=== PATIENT | female | born 1990 | race Caucasian/White ===

== ENCOUNTER 2019-03-02 22:46 | Emergency (ER) | payer MEDICAID ==
[~2019-03-02] VITALS: Ht 152.4 cm; Wt 68.0 kg
[2019-03-02 22:56] VITALS: BP 120/72
--- NOTE | 2019-03-02 23:10 | NUR ---
PT CAME IN C/O OF SUPRAPUBIC ABDOMINAL PAIN. PAIN LEVEL 10/10, RADIATING TO BACK. PAIN UPON URINATION, BURNING. PT STATES SHE IS 13 WEEKS . LAST MENSTRUAL CYCLE OCT 17, 2018. DENIES N/V/D. VAGINAL BLEEDING NOTED, BUT CONTROLLED. NO DIZZINESS. SAFETY MEASURES IN PLACE. WAITING FOR ERMD TO EVALUATE PT.
--- NOTE | 2019-03-02 23:28 | NUR ---
Dr. Spear examining patient.
[2019-03-02 23:31] LABS: BASOPHILS # (AUTO) 0.1 K/uL (0.00-0.22); EOSINOPHILS # (AUTO) 0.5 K/uL (0-0.4); EOSINOPHILS % (AUTO) 6.1 % (0.0-4.0); HEMATOCRIT 41.1 % (36-48); LYMPHOCYTES # (AUTO) 1.3 K/uL (2.5-16.5); LYMPHOCYTES % (AUTO) 16.5 % (20.5-51.1); MEAN CORPUSCULAR HEMOGLOBIN 30 pg (27-31); MEAN CORPUSCULAR HGB CONC 34 g/dL (33-37); MEAN CORPUSCULAR VOLUME 88.9 fL (80-94); MONOCYTES # (AUTO) 0.4 K/uL (0.8-1.0); MONOCYTES % (AUTO) 4.8 % (1.7-9.3); NEUTROPHILS # (AUTO) 5.5 K/uL (1.8-7.7); NEUTROPHILS % (AUTO) 71.6 % (42.2-75.2); PLATELET COUNT (AUTO) 242 K/uL (140-450); RED BLOOD CELL COUNT(AUTO) 4.62 MIL/uL (4.20-5.40); RED CELL DISTRIBUTION WIDTH 13.4 % (11.6-13.7); WHITE BLOOD COUNT (AUTO) 7.7 K/uL (4.8-10.8)
--- NOTE | 2019-03-02 23:34 | NUR ---
PT TAKEN TO ULTRASOUND
[2019-03-02 23:37] LABS: APPEARANCE,URINE BLOODY (CLEAR); BILIRUBIN,URINE NEGATIVE (NEGATIVE); BLOOD, URINE 3+ (NEGATIVE); COLOR,URINE YELLOW (YELLOW); LEUKOCYTE ESTERASE ,URINE 2+ (NEGATIVE); NITRITE, URINE POSITIVE (NEGATIVE); PH,URINE 8.5 (5.0-9.0); UGLUCOSE NEGATIVE (NEGATIVE)
--- NOTE | 2019-03-02 23:46 | NUR ---
PT RETURN FROM ULTRASOUND
[2019-03-02 23:51] LABS: RBC,URINE TOO NUMEROUS TO COUN /HPF (0-5); WBC,URINE TOO MANY TO COUNT /HPF (0-5)
--- NOTE | 2019-03-03 00:10 | NUR ---
PT IN BED RESTING WITH EYES OPEN. AT BEDSIDE. VSS. WILL CONTINUE TO MONITOR.
--- NOTE | 2019-03-03 01:30 | NUR ---
Aleena arredondo in ED - 03/03/19 at [address] RAHMAN WITH PELVIC EXAM. TOLERATED PROCEDURE WELL.
--- NOTE | 2019-03-03 01:35 | NUR ---
ASSISTED DR. RAHMAN WITH PELVIC EXAM. TOLERATED PROCEDURE WELL.
[2019-03-03 01:56] VITALS: BP 99/57
--- NOTE | 2019-03-03 01:57 | NUR ---
Patient discharged with v/s stable. Written and verbal after care instructions given and explained. Patient alert, oriented and verbalized understanding of instructions. Ambulatory with steady gait. All questions addressed prior to discharge. ID band removed. Patient advised to follow up with PMD. Rx of NAPROSYN, ACETAMINOPHEN, AND KEFLEX WAS given. Patient educated on indication of medication including possible reaction and side effects. Opportunity to ask questions provided and answered.
== END 2019-03-03 01:57 | disposition home or self-care (01) ==
LOC: MED 22:46
DX: O03.9 Complete or unspecified spontaneous abortion without complication (principal); O23.41 Unspecified infection of urinary tract in pregnancy, first trimester; Z3A.11 11 weeks gestation of pregnancy
CPT/HCPCS: 36415; 76817; 81001; 81025; 84702; 85025; 86900; 86901; 87086; 88305; 99284